=== PATIENT | male | born 1930 | race Caucasian/White ===

== ENCOUNTER → 2019-06-11 | Outpatient (CLI) | payer MEDICARE, MEDICAID ==
[~2019-06-11] MED LIST: ATEN25TA; BABY81CH; COLA100C2; MULTIVIT; NITR0.1D; PERC5TAB8; TRIC145T19
--- NOTE | 2019-06-11 15:12 | REP ---
BILATERAL LOWER EXTREMITY DUPLEX DOPPLER VENOUS ULTRASOUND WITH EVALUATION FOR VENOUS REFLUX: Real-time compression and duplex Doppler interrogation of bilateral lower extremity deep venous systems is performed. Bilaterally, common femoral, superficial femoral, and popliteal veins are fully compressible with transducer pressure and demonstrate normal spontaneous and phasic flow without evidence of deep venous thrombosis. Evaluation for venous reflux in the right lower extremity demonstrates minimal reflux in the common femoral vein and central greater saphenous vein. There i no reflux in the superficial femoral or popliteal veins, nor is there is evidence in the lesser saphenous vein which measures 3 mm. There is reflux in the central greater saphenous vein near the saphenofemoral junction with a duration of 1 second, AP diameter 6 mm. There is no reflux more distally, at the mid thigh where the greater saphenous vein measures 3 mm nor at the knee where it measures 4 mm. Evaluation for venous reflux on the left demonstrates mild reflux in the common femoral vein and greater saphenous vein at the saphenofemoral junction, reflux at the saphenofemoral junction in the greater saphenous vein has a duration of 1 second with AP diameter of 4 mm. There is no reflux in the mid greater saphenous vein at the thigh which measures 3 mm nor at the knee which measures 3 mm. There is no reflux in superficial femoral or popliteal veins nor in the lesser saphenous vein which measures 3 mm. Electronically Signed by Salazar Sheriff MD 06/12/2019 04:45 P
== END ==
LOC: M RAD 10:19
PROVIDERS: ATTEND Surgery Vascular Surgery
DX: I87.313 Chronic venous hypertension (idiopathic) with ulcer of bilateral lower extremity (principal); I87.2 Venous insufficiency (chronic) (peripheral)